=== PATIENT | female | born 1950 | race Caucasian/White ===

== ENCOUNTER → 2016-12-23 | Outpatient (CLI) | payer BC ==
[~2016-12-23] MED LIST: AZIT250T3 PO; ESTR42.5V VAGINAL; FLUT1SPR9 EACH NARE; KETO10 PO; NEXI20CA PO; NEXI40CA PO; VIVE0.02 T-DERMAL; ZYRT10CA PO
[2016-12-23 13:36] LABS: BLOOD, URINE NEG (NEG); GLUCOSE,URINE NEG (NEG); KETONE, URINE NEG (NEG); NITRITE,URINE NEG (NEG); SQUAMOUS EPITHELIAL CELL URINE <1 /hpf (0-5); URINE COLOR LIGHT-YELLOW (YELLW/STRAW)
[2016-12-23 13:37] LABS: COMMENT (UR) CULT NOT INDICATED; CULTURE IF INDICATED CULT NOT INDICATED
[2016-12-23 13:39] LABS: AUTOMATED NEUTROPHIL # 4.9 TH/MM3 (1.8-7.7); BASOPHIL % 0.4 % (0.0-2.0); EOSINOPHIL # 0.1 TH/MM3 (0-0.4); EOSINOPHIL % 1.2 % (0.0-4.0); HEMATOCRIT 39.5 % (35.0-46.0); HEMO FLAGS DIFF FINAL; LYMPH % 21.8 % (9.0-44.0); LYMPHOCYTE # 1.5 TH/MM3 (1.0-4.8); MEAN CELL VOLUME 95.6 FL (80.0-100.0); MEAN CORPUSCULAR HEMOGLOBIN 33.7 PG (27.0-34.0); MEAN CORPUSCULAR HGB CONC 35.3 % (32.0-36.0); MONO % 5.7 % (0.0-8.0); NEUT % 70.9 % (16.0-70.0); PLATELET COUNT 246 TH/MM3 (150-450); RED BLOOD COUNT 4.13 MIL/MM3 (4.00-5.30); RED CELL DISTRIBUTION WIDTH 13.6 % (11.6-17.2)
[2016-12-23 14:05] LABS: ALKALINE PHOSPHATASE 62 U/L (45-117); ALT (GPT) 25 U/L (10-53); ANION GAP 8 MEQ/L (5-15); AST (GOT) 11 U/L (15-37); BICARBONATE 28.9 MEQ/L (21.0-32.0); BLOOD UREA NITROGEN 17 MG/DL (7-18); CHLORIDE 103 MEQ/L (98-107); GLOMERULAR FILTRATION RATE 71 ML/MIN (>89); GLUCOSE,FASTING 105 MG/DL (74-99); POTASSIUM 4.2 MEQ/L (3.5-5.1); SODIUM (NA) 140 MEQ/L (136-145); TOTAL BILIRUBIN ADULT 0.3 MG/DL (0.2-1.0)
--- NOTE | 2016-12-24 16:53 | EKG ---
Date Performed: 12/23/2016 Time Performed: 12:58:15 PTAGE: 66 years EKG: Sinus rhythm NORMAL ECG NO PREVIOUS TRACING DOCTOR: Devin Villeda Interpretating Date/Time 12/24/2016 16:52:49
== END ==
LOC: CPRE 12:27
PROVIDERS: ATTEND Obstetrics & Gynecology Gynecology
DX: Z01.810 Encounter for preprocedural cardiovascular examination (principal); Z01.812 Encounter for preprocedural laboratory examination; N39.3 Stress incontinence (female) (male)
CPT/HCPCS: 36415; 80053; 81001; 85025; 93005

== ENCOUNTER → 2017-01-05 | Day surgery (SDC) | payer BC ==
--- NOTE | 2016-12-23 17:27 | MH ---
cc: BONI ERWIN ROXY M.D. DATE OF ADMISSION 01/05/2017 1951 REASON FOR ADMISSION Trans obturator sling. HISTORY OF PRESENT ILLNESS The patient is a 66-year-old white female 5, para 3 status post prior hysterectomy for benign condition. She has had issues with stress urinary incontinence. In the office, we demonstrate hypermobility of the urethra with no postvoid residual. Her urodynamic study showed no detrusor instability. She had normal uroflow with no sign of obstruction. Urinary volumes were 166/225/341/399, leak point at 152 mL, normal EMG. The patient was given options for management and treatment. She has been using vaginal estrogen and had no significant improvement and now wants to proceed with surgical correction. PAST MEDICAL HISTORY Negative for heart, lung, liver disease, hypertension, diabetes or stroke. PAST SURGICAL HISTORY 1. Hysterectomy, 2. appendectomy. SOCIAL HISTORY Does not smoke, use alcohol or drugs to any great degree. with good social support. OBSTETRICAL HISTORY Three vaginal deliveries, largest baby 8 pounds GYNECOLOGIC HISTORY No STDs or abnormal Pap smears, hysterectomy for benign condition. FAMILY HISTORY Noncontributory ALLERGIES None REVIEW OF SYSTEMS As above. No chest pain, orthopnea, PND. No nausea, vomiting, fever or chills. No vaginal bleeding or discharge. Remainder of 14-point review negative. PHYSICAL EXAMINATION VITAL SIGNS: On exam she is afebrile. Vital signs stable. Blood pressure 120/70, height 5 feet 4 inches, weight 125, BMI is 21.5. GENERAL: Patient is alert and oriented in no acute distress, no sign of cognitive dysfunction or depression. HEENT: Within normal limits. NECK: Supple. No JVD. CHEST: Clear. HEART: Regular rate and rhythm. ABDOMEN: Soft, nontender. No hepatosplenomegaly. No CVA tenderness. PELVIC: Exam will be detailed under anesthesia. in the office, we note pop Q score Aa is -1, Ap is -1, point C is -8, genital hiatus is five. Perineal body is five. Total vaginal length is 10. Levator muscles are normal. Sacral nerve reflexes are normal. Q-tip test 30 degrees from horizontal, postvoid residual 10. Further exam under anesthesia. EXTREMITIES: Normal. SKIN: Without rashes NEUROLOGIC: Nonfocal. No DVT signs. ASSESSMENT Patient with stress urinary continence, hypermobility of urethra. No postvoid residual, negative urinalysis and leak point noted at 152 mL. The patient and I discussed options for management and treatment. She is aware of the risks, benefits and alternatives of planned procedure including damage to surrounding organs, bleeding, infection, failure of repair and also possible urinary retention as well as issues with prolonged catheterization and dyspareunia. I believe the patient has made an informed choice to proceed. We will use a Caldara type trans obturator sling. DVT prophylaxis with sequential compression device. Antibiotic prophylaxis Ancef 1 gram. Anticipate outpatient procedure. MD ABEL Peñaloza/ /4:31 PM /5:14 PM
[~2017-01-05] VITALS: Ht 162.6 cm; Wt 61.6 kg
[~2017-01-05] MED LIST changes: +ACETAMINOPHEN 1000 MG/100 ML VIAL IV ONE; +DEXAMETHASONE SOD PHOS 20 MG/5 ML VIAL ONE; +DO NOT ADM ANY ANTICOAGULANT DRUGS XX PRN; +FAMOTIDINE 20 MG/2 ML VIAL ONE; +INSULIN HUMAN REGULAR 1,000 UNITS/10 ML VIAL SQ PRN; +KETOROLAC TROMETHAMINE 10 MG TAB PO ONE; +KETOROLAC TROMETHAMINE 30 MG/ML (IVP) VIAL IV PUSH ONE; +KETOROLAC TROMETHAMINE 60 MG/2 ML (IM) VIAL IM ONE; +LACTATED RINGER'S 1000 ML INJ 1,000 ML IV ONE; +LACTATED RINGER'S 1000 ML IV SCH; +LIDOCAINE 1%/EPINEPHrine 1:100,000 SOLN 30 ML VIAL INFIL ONE; +METHYLENE BLUE 10 MG/ML VIAL OTHER ONE; +METOPROLOL TARTRATE 25 MG TAB PO PRN; +MIDAZOLAM HCL 2 MG/2 ML VIAL ONE; +NEOSTIGMINE METHYLSULFATE 10 MG/10 ML VIAL IV PUSH ONE; -NEXI20CA PO; +ONDANSETRON HCL 4 MG/2 ML VIAL IV PUSH ONE; +PROPOFOL 200 MG/20 ML AMP IV ONE; +SODIUM CHLORID 0.9% 500 ML IV SCH; +ceFAZolin 1,000 MG/NS 100 ML IV SCH; +ePHEDrine/NS 25 MG/5 ML SYR IV ONE; +fentaNYL CITRATE 250 MCG/5 ML AMP ONE
[2017-01-05 07:41] VITALS: BP 142/72; PULSE 72; RESP 16; TEMP 99; O2SAT 100
[2017-01-05 10:50] VITALS: BP 137/71; PULSE 79; RESP 18; O2SAT 99
--- NOTE | 2017-01-06 06:58 | MP ---
cc: BONI ERWIN MDASHLEY SotoY DATE OF SURGERY 01/05/2017 PREOPERATIVE DIAGNOSES Stress incontinence POSTOPERATIVE DIAGNOSIS Stress incontinence with cystocele PROCEDURE 1. Transobturator tape using Dominik Desara polypropylene sling 2. Anterior repair SURGEON Boni Erwin MD ANESTHESIA General endotracheal BLOOD LOSS 50 cc CARDIAC CATHETERIZATION TECHNOLOGIST [place] staff x2 FINDINGS External genitalia normal pop Q score: Aa is -1, Ap is -1. Point C is -8. Total vaginal length is 8. Genital hiatus is 7. Perineal body is 4. Following repair Aa is -3. Cystoscopy shows normal trigone, good coaptation of urethra, ureteral orifice patent x2. Dome and base of bladder normal. SPECIMENS None COMPLICATIONS None DISPOSITION Recover stable. COUNTS Needle and sponge count correct. DRAINS Meléndez catheter ANTIBIOTIC PROPHYLAXIS Ancef one gram DVT PROPHYLAXIS Sequential compression device. TIME OUT PROCEDURE Per protocol SUMMARY AND INDICATIONS Patient with documented stress urinary continence on exam and leak point pressures of 152 confirmed with urodynamic testing. PROCEDURE The patient was taken to the operating room theater, identified, prepped and draped in a fashion appropriate for the planned procedure. She was in the dorsolithotomy position with careful attention paid to placement of legs in the stirrups to avoid undue stress to sensitive neurovascular structures. Above findings noted. Neurovascular integrity documented. Meléndez catheter was placed, methylene blue was instilled into the bladder The obturator foramen were identified and outlined on each side. Each obturator foramen area was infiltrated with epinephrine lidocaine solution. The length of the urethra was identified by palpating the Meléndez bulb and we infiltrated this area with epinephrine/lidocaine solution, made a midline incision with scissors, reflected the mucosa from the urethra without complication or damage or spill of methylene blue. A C-hook was used met lateral to medial position on the right to introduce a sling. The same procedure was performed on the left hand side. There was no spill of methylene blue and there was no buttonholing of the vaginal mucosa. The sling was placed in a tension-free manner using a scalpel handle as a spacer. A modified anterior repair was performed without complication using delayed absorbable suture. Hemostatic matrix was used for hemostasis to obviate the need for packing. At the conclusion of the procedure, cystoscopy was performed using a 17-Romanian bridge, a 70 degrees scope with the above findings noted. The patient tolerated the procedure well and went to the recover room in stable condition. If she has a successful voiding trial, she will be discharged home from the PACU. MD ABEL Peñaloza/PING /10:40 AM /6:45 AM
== END | disposition home or self-care (01) ==
LOC: HSDC 06:57
PROVIDERS: ATTEND Obstetrics & Gynecology Gynecology
DX: N39.3 Stress incontinence (female) (male) (principal); R33.9 Retention of urine, unspecified; N81.10 Cystocele, unspecified; N94.10 Unspecified dyspareunia; Z90.710 Acquired absence of both cervix and uterus
CPT/HCPCS: 00860; 57240; 57288; C1771; J0131; J0690; J1100; J1885; J2250; J2405; J2710; J3010; J7120